=== PATIENT | female | born 2000 | race Caucasian/White ===

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

== ENCOUNTER 2019-01-20 15:16 | Outpatient (REF) | payer BC, SELFPAY ==
[2019-01-20 22:23] LABS: HGB 14.8 g/dL (12.0-15.5); Mean Corp. HGB Concentration 35.2 g/dL (32.0-36.0); Mean Corpuscular Volume 93.8 fL (80-95); Mean Platelet Volume 10.4 fL (8.0-11.0); Platelet Count 240 x1000/uL (130-400); RBC 4.48 m/cumm (4.00-5.20); RBC Distribution Width 13.1 % (11.7-14.6); White Blood Cell Count 3.04 k/cumm (4.4-10.8)
[2019-01-20 22:49] LABS: Anion Gap 9.2 mmol/L (3-11); BUN 10 mg/dL (7-18); CO2 27.8 mmol/L (21.0-32.0); CREATININE 0.68 mg/dL (0.55-1.02); Calcium 9.4 mg/dL (8.5-10.1); Chloride 107 mmol/L (98-107); Glucose 79 mg/dL (74-106); Sodium 144 mmol/L (136-145); TSH (W/Ref FT4) 0.63 uIU/mL (0.52-4.13)
== END 2019-01-20 15:36 ==
LOC: NCHCN 15:16
PROVIDERS: Visit Provider Nurse Practitioner Family
DX: R55 Syncope and collapse (principal)
CPT/HCPCS: 80048; 85027; 84443

== ENCOUNTER 2019-07-28 19:42 | Emergency (ER) | payer BC, SELFPAY ==
[2019-07-28 19:53] VITALS: BP 118/79; PULSE 91; RESP 18; TEMP 36.7; O2SAT 99
--- NOTE | 2019-07-28 20:12 | PDOC.CMSAFED ---
- If Service Date Differs Date of service: 07/28/19 Time of Service: 20:12 Care Management Safety Plan Chief complaint: Lety is a 19 year old female who resides in [place], [place], with her parents. She just completed her sophomore year at [employer]. Lety tells the ED provider she has a lot of stressors in her life and has been having worsening suicidal thoughts and feelings of hopelessness over the last 1-1/2 weeks. She goes on to say she does not see the point in life anymore, but denies plan to harm herself and says she is afraid to . Lety was started on Sertraline 50 mg daily by her PCP a few months ago for treatment of depression. CM will respond to ED to assess patient after patient has been medically cleared and assessed by screener. If screener deems patient meets criteria for psychiatric stabilization, CM will facilitate interdepartmental huddle with [facility] screener for safety planning considerations and meet with patient to review [facility] policy and safety plan, establish individual wishes for treatment and maintain patient rights. In the interim; please note safety plan below to guide patient care while awaiting further assessment in the ED. SAFETY PLAN: 1. Will remain on suicide precautions and in paper clothes. 2. Will remain in room under direct supervision of one-on-one staff at all times provided by [employer], EVER, BONDERITE OPERATOR certified family mediator. 3. May have paper cups, plates, finger foods as well as a cardboard spoon with which to eat meals. 4. Follow [facility] Management of the Admitted Behavioral Health Patient policy. 5. Comfort bath system only. 6. No personal belongings 7. No visitors. 8. Activities: None at this time. 8. No telephone privileges at this time. 9. Due to VOLUNTARY status, if patient wishes to leave [facility], the [facility] grey roll worker must be contacted to evaluate patient prior to patient exiting the building. If deemed appropriate for inpatient psychiatric care, safety plan will be established with patient, and care team, to adhere to patient goals, identify restrictions based on behavioral status, address nutrition, and determine allowed personal belongings, tools for hygiene and personal care. As well plan will determine level of activity including ambulation, level of supervision, visitors, and determine privileges based on level of acuity, behaviors and level of engagement by patient. DISPOSITION: Lety is medically cleared and she has been assessed by MH screener. Lety is able to enter into a safety plan, so she is returning home with her parents. She is provided with the crisis number for [facility] and is instructed to call as needed. A hot mill worker from [facility] will follow up with Lety in the morning.
--- NOTE | 2019-07-28 20:29 | W.ED.GENAD ---
Discharge Plan Disposition Patient Disposition: HOME Condition: Stable Discharge Details Chief Complaint: PsychEval Clinical Impression: Depression Primary Care Provider: Nitesh Tucker ED Provider: Ioana Hernandez Home Meds and New Rx's Prescriptions: No Action norgestimate-ethinyl estradiol [Sprintec (28)] 0.25-35 mg-mcg tablet 1 tab PO DAILY Qty: 84 RF: 3 sertraline 50 mg Tablet 50 mg PO DAILY RF: 0 buspirone 5 mg Tablet 5 mg PO BID RF: 0 Discharge Instructions Instructions: Depression (ED), Suicide Prevention (ED) Additional Instructions: Please call the suicide prevention hotline if any further thoughts of harming yourself. Also call the [facility] emergency hotline at if any further thoughts. They will call you tomorrow for follow-up. Follow up with primary care provider in 3-5 days. Return to ED sooner if any worsening suicidal thoughts, or concerns. Increase oral fluids. Take previously prescribed medications as directed. Stand Alone Forms: Work Release Referrals: Nitesh Tucker MD [Primary Care Provider] - Discharge Data Discharge Date/Time-TO BE ENTERED AT DEPARTURE: 07/28/19 22:00 Medical Decision Making 19-year-old female presents to the ED with depression, requesting psych eval. Patient states that she has had worsening thoughts daily over the last 1-1/2 weeks and states that she does not see the point in life anymore. Patient does take sertraline 50 mg daily since winter. Patient relays that she has thoughts of hopelessness. She denies taking any extra medications denies drugs or alcohol. Does not smoke. States she has had increased stressors. She does not have a plan at this time. She denies any physical complaints other than intermittent mild headache. 2134: Behavioral health evaluation process at this time. 2139: Spoke with [facility] behavioral health liaison who reports patient is safe to go home in custody of her parents, does have a safety plan in place and they are to follow-up with her tomorrow. I will give patient the phone number for the emergency crisis hotline. At this time I agree with the assessment and plan for patient, care management will be notified. Patient given suicide crisis hotline, strict return instructions given. Patient verbalizes feeling safe to be discharged home at this time. HPI General Mode of arrival: ambulatory. Date/Time Provider Initiated Documentation: 07/28/19 20:02. Limitations to Documentation: no limitations. Information obtained by: patient. HPI Narrative: 19-year-old female presents to the ED with depression, requesting psych eval. Patient states that she has had worsening thoughts daily over the last 1-1/2 weeks and states that she does not see the point in life anymore. Patient does take sertraline 50 mg daily since winter. Patient relays that she has thoughts of hopelessness. She denies taking any extra medications denies drugs or alcohol. Does not smoke. States she has had increased stressors. She does not have a plan at this time. She denies any physical complaints other than intermittent mild headache. Related Data Home Medications Medication Instructions Recorded Confirmed norgestimate 0.25 mg-ethinyl 1 tab PO DAILY #84 tab 08/31/18 07/28/19 estradiol 35 mcg tablet buspirone 5 mg PO BID 07/28/19 07/28/19 sertraline 50 mg PO DAILY 07/28/19 07/28/19 Previous Rx's Medication Instructions Recorded norgestimate 0.25 mg-ethinyl 1 tab PO DAILY #84 tab 08/31/18 estradiol 35 mcg tablet Allergies Allergy/AdvReac Type Severity Reaction Status Date / Time No Known Allergies Allergy Verified 07/28/19 20:11 General Stated Complaint: PsychEval FERNANDO: 2 Review of Systems Narrative: Constitutional: Negative for weight loss, alert and oriented, well groomed, normal body habitus, appears comfortable. HEENT: Denies trauma, , blurry vision, nasal discharge, sore throat, trouble swallowing. Positive intermittent headache. Chest: Denies chest pain, palpitations, irregular rhythm, hypertension. Respiratory: Denies Shortness of breath, cough, hemoptysis. GI: Denies abdominal pain, nausea, vomiting, diarrhea, constipation. : Denies dysuria, hematuria, flank pain, rectal bleeding. Neuro: Denies dizziness, blurry vision, weakness, syncope, or facial numbness. Hematologic: Denies easy bruising, intolerance to heat or cold, hair loss. All systems reviewed & are unremarkable except as noted in HPI and below Psychiatric Psychiatric: Reports as per HPI, Reports depression, Denies auditory hallucinations, Reports hopelessness and Reports suicidal ideation (Has thoughts of hurting herself, no plan) [facility] Medical History Constipation Depression (Chronic) Episode of syncope (Chronic) Generalized headaches Right ankle sprain Family History Mother Essential hypertension Father No problems noted. 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 Appears stated age. Normal body habitus. Head: Normocephalic, no trauma. Eyes: Pupils PERRLA, Red reflex noted, EOM's intact. Eyelids symmetrical without lesions, discharge, or swelling. ENT: Bilateral TM's WNL, External ear normal to inspection, no mastoid TTP, swelling, or erythema, Nasal turbinates WNL, no nasal discharge. Normal dentition, Posterior pharynx WNL, no exudate. Chest: RRR, Normal S1, S2, distal pulses intact. Resp: Lungs clear to auscultation bilaterally, no wheezes, rales, or rhonchi. Musculoskeletal: Normal gait, 5/5 strength to all four extremities. Skin: No suspicious rashes or lesions. Capillary refill less than 2 sec. Neurologic: Cranial nerves II-XII intact. Alert and oriented x 3. DTR's intact. Hematologic/Lymphatic: No ecchymosis, no lymphadenopathy. Psych Appearance: well kempt Mood: anxious mood Affect: sad Attitude: cooperative Thought Process: normal Thought Content: normal and suicidality (Thoughts of self-harm, no plan) Insight: insight good Judgment: judgment good Other: Patient does state that she is afraid to Course Vital Signs Vital signs: Vital Signs Temperature 36.7 C 07/28/19 19:53 Pulse 91 H 07/28/19 19:53 Respiratory Rate 18 06/17/20 19:53 Blood Pressure 118/79 07/28/19 19:53 Pulse Oximetry 99 07/28/19 19:53 Temperature 36.7 C 07/28/19 19:53 Temperature Source Tympanic 07/28/19 19:53 Pulse 91 H 07/28/19 19:53 Respiratory Rate 18 07/28/19 19:53 Respiratory Effort Non-Labored 07/28/19 19:58 Blood Pressure 118/79 07/28/19 19:53 Blood Pressure Position Sitting 07/28/19 19:53 Pulse Oximetry 99 07/28/19 19:53 Oxygen Delivery Method Room Air 07/28/19 19:53 Oxygen Flow Rate 0 07/28/19 19:53
--- NOTE | 2019-07-28 21:45 | PDOC.MHCN ---
Date of service: 07/28/19 Time of Service: 21:45 Mental Health Crisis Note Presenting Issue How did you arrive at the ED and why did you come: Client arrived at the ED by her boyfriend after making suicidal threats. Precipitating Factors Client reported no SI or HI. Client reports that she does not want to , she just feels like there is no point in life and it may be better off if she is not here. Client reports that even though she has these thoughts, she is afraid to hurt herself and is afraid of what it will be like on the other side. Disposition BEHAVIOR: unremarkable EYE CONTACT: normal MOOD: anxious and slightly depressed AFFECT: normal APPETITE: normal SLEEP(trouble falling/staying asleep: none reported Plan This clinician spoke with client and discussed coping strategies for helping her when she is feeling depressed or anxious. [facility] will reach out to client tomorrow to support her in finding a new therapist. Client will call Emergency number if feeling any SI. This junior technical writer spoke with physician and we both felt client would be safe to go home. Signature Clinician's Name/Title: Albina Ortiz [facility] Emergency Clinician
[2019-07-28 21:59] VITALS: BP 122/64; PULSE 64; RESP 18; TEMP 36.6; O2SAT 98
== END 2019-07-28 22:00 | disposition home or self-care (01) ==
PROVIDERS: Emergency Provider Registered Nurse Emergency; PCP Internal Medicine
DX: F32.9 Major depressive disorder, single episode, unspecified (principal); R45.851 Suicidal ideations
CPT/HCPCS: 99285; 99283

== ENCOUNTER 2019-09-08 10:30 | Outpatient (REF) | payer BC, SELFPAY ==
[2019-09-09 18:37] LABS: Chlamydia Result Negative (Negative); GC Result Negative (Negative)
== END 2019-09-08 10:50 ==
LOC: LBN 10:30
PROVIDERS: PCP Internal Medicine; Visit Provider Nurse Practitioner Women's Health
DX: Z11.3 Encounter for screening for infections with a predominantly sexual mode of transmission (principal)
CPT/HCPCS: 87491; 87591

== ENCOUNTER 2020-01-21 12:00 | Outpatient (REF) | payer BC, SELFPAY ==
[2020-01-25 21:58] LABS: COVID-19 RT-PCR Result NEGATIVE (Negative)
== END 2020-01-21 12:20 ==
LOC: NCHCN 12:00
PROVIDERS: PCP Internal Medicine; Visit Provider Nurse Practitioner Family
DX: R50.9 Fever, unspecified (principal)
CPT/HCPCS: U0003

== ENCOUNTER 2020-06-08 13:24 | Emergency (ER) | payer BC, SELFPAY ==
[2020-06-08 13:32] VITALS: BP 149/104; PULSE 75; RESP 20; TEMP 36.2; O2SAT 100
--- NOTE | 2020-06-08 13:37 | ED.GENADUL_ITS ---
Discharge Plan Disposition Patient Disposition: HOME Condition: Improving Discharge Details Clinical Impression: Vomiting and diarrhea Primary Care Provider: Diana Velasco ED Provider: Fiordaliza Uribe Home Meds and New Rx's Prescriptions: New ondansetron 4 mg tablet,disintegrating 4 mg PO TID PRN (Reason: nausea and vomiting) Qty: 6 RF: 0 Continued norgestimate-ethinyl estradiol [Elvira] 0.25-35 mg-mcg Tablet 1 tab PO DAILY RF: 0 sertraline 25 mg Tablet 25 mg PO DAILY RF: 0 Discharge Instructions Instructions: Acute Nausea and Vomiting (ED), Acute Diarrhea (ED) Additional Instructions: Drink plenty of fluids and get plenty of rest. Your prescription has been sent electronically to your pharmacy. Call the pharmacy to make sure your prescription is ready before pickup. Take the prescription as directed. Follow-up with your primary care doctor in 1 week. Return to the emergency department with any worsening or new concerning symptoms. Stand Alone Forms: Work Release Discharge Data Discharge Date/Time-TO BE ENTERED AT DEPARTURE: 06/08/20 16:02 Discharge Physician: Fiordaliza Uribe Medical Decision Making 19-year-old female with no significant past medical history presents with vomiting and diarrhea today. She had 3 episodes of vomiting which were blood- tinged and brown and with loose brown Patient showed me pictures of her vomit and it appeared that the toilet was red- tinged on first episode of vomiting, and another episode look like brown stringy material. Her vitals are within normal limits. She appears nontoxic and afebrile. Screening labs done on arrival and note a hemoglobin which is actually elevated at 16.7 which may be consistent with dehydration. Remainder of labs unremarkable. Urine test negative. As she has no return of nausea, is hemodynamically stable and appears nontoxic, do not see an indication for NG tube and patient is agreeable. As she appears nontoxic and her abdomen is soft and nontender, do not see an indication for imaging. Patient given IV fluids and Zofran and had significant relief and was able to tolerate fluids and crackers without any further nausea. Patient feels good to go home. A prescription for Zofran was sent electronically to her pharmacy. Discussed that her presentation could be due to a GI viral illness. Advised to follow up with the primary care doctor for re-evaluation. Usual and customary return precautions given prior to discharge. Medical Records Medical records reviewed: Yes I reviewed the patient's medical records. Lab Data Lab results reviewed: Yes I reviewed the patient's lab results. Labs: Laboratory Tests Range/Units 06/08/20 06/08/20 13:56 13:56 WBC (4.4-10.8) 10^3/uL 4.63 RBC (3.93-5.22) 10^6/uL 5.33 H Hgb (11.2-15.7) g/dL 16.7 H Hct (36.0-46.0) % 47.2 H MCV (80-95) fL 88.6 MCH (27.0-33.0) pg 31.3 MCHC (32.0-36.0) % 35.4 RDW (11.7-14.6) % 13.0 Plt Count (130-400) 10^3/uL 228 MPV (8.0-11.0) fL 9.1 Immature Gran % 0.2 Neutrophils % 72.6 Lymphocytes % 20.5 Monocytes % 6.3 Eosinophils % 0.2 Basophils % 0.2 Nucleated RBC % % 0 Absolute Neutrophils (1.2-6.7) 10^3/uL 3.36 Absolute Lymphocytes (1.2-3.4) 10^3/uL 0.95 L Absolute Monocytes (0.1-0.8) 10^3/uL 0.29 Absolute Eosinophils (0.0-0.7) 10^3/uL 0.01 Absolute Basophils (0.0-0.2) 10^3/uL 0.01 Sodium (136-145) mmol/L 142 Potassium (3.5-5.1) mmol/L 4.0 Chloride (98-107) mmol/L 103 Carbon Dioxide (21.0-32.0) mmol/L 27.9 Anion Gap (3-11) mmol/L 11.1 H BUN (7-18) mg/dL 12 Creatinine (0.55-1.02) mg/dL 0.7 Estimated GFR/1.73 m2 (mL/min/1.73m2) >= 60.00 Glucose (74-106) mg/dL 90 Calcium (8.5-10.1) mg/dL 9.8 Total Bilirubin (0.2-1.0) mg/dL 0.9 AST (15-37) U/L 21 ALT (14-59) U/L 34 Alkaline Phosphatase (46-116) U/L 57 Total Protein (6.4-8.2) g/dL 7.9 Albumin (3.4-5.0) g/dL 4.3 Lipase (73-393) U/L 214 HPI General Mode of arrival: ambulatory . Date/Time Provider Initiated Documentation: 06/08/20 13:24 . Limitations to Documentation: no limitations . Information obtained by: patient . HPI Narrative: Patient is a 19-year-old female with no significant past medical history presents with vomiting and diarrhea today. Patient states she vomited 3 times today which she was concerned as it appeared to have blood in the toilet. She noted bright red blood in the toilet upon first episode of vomiting and then subsequent episode is noted what appeared to be brown coffee ground. She states she also had loose brown diarrhea. She states she ate a 4-day-old pizza last night but otherwise denies any change in her diet, new medications, recent travel, recent antibiotics. She denies any fever, abdominal pain or urinary symptoms Related Data Home Medications Medication Instructions Recorded Confirmed norgestimate-ethinyl estradiol 1 tab PO DAILY 06/08/20 06/08/20 [Elvira] ondansetron 4 mg PO TID PRN #6 tab 06/08/20 sertraline 25 mg PO DAILY 06/08/20 06/08/20 Previous Rx's Medication Instructions Recorded ondansetron 4 mg PO TID PRN #6 tab 06/08/20 Allergies Allergy/AdvReac Type Severity Reaction Status Date / Time No Known Allergies Allergy Unverified 06/08/20 14:01 General Stated Complaint: GI Bleed FERNANDO: 3 Review of Systems All systems reviewed & are unremarkable except as noted in HPI and below Constitutional Constitutional: Reports as per HPI, Denies chills and Denies fever(s) Eyes Eyes: Denies blurry vision ENT Ears, Nose, Mouth, and Throat: Denies dizziness, Denies sore throat and Denies throat swelling Cardiovascular Cardiovascular: Denies chest pain and Denies dyspnea Respiratory Respiratory: Denies cough and Denies dyspnea Gastrointestinal Gastrointestinal: Denies abdominal pain, Reports diarrhea and Reports vomiting Genitourinary Genitourinary: Denies hematuria and Denies dysuria Musculoskeletal Musculoskeletal: Denies back pain and Denies numbness Integumentary/Breasts Skin/Breast: Denies lesions and Denies rash Neurologic Neurologic: Denies dizziness, Denies localized weakness and Denies numbness Allergic/Immunologic Allergic/Immunologic: Denies throat swelling [facility] Medical History (Updated 06/08/20 @ 16:05 by Fiordaliza Uribe DO) Depression Surgical History (Updated 06/08/20 @ 16:05 by Fiordaliza Uribe DO) No significant past surgical history Social History Smoking/Tobacco Use Status: Never Smoking risk assessment performed?: Yes Alcohol Intake: never Drug use: Never Substance use type: does not use Do you feel safe at home: Yes Do you feel safe in your relationship?: Yes Exam Const General: cooperative, healthy appearing and no acute distress HENMT Head: normal to inspection Face and sinus: normal facial exam Eyes General: appearance normal, both eyes and all related structures EOM: EOM intact bilaterally Neck Neck: normal visual inspection and No submandibular swelling Lymphatic: no lymphadenopathy noted Chest Chest: normal inspection of the chest and no tenderness Resp Effort & Inspection: normal respiratory effort and able to speak in complete sentences Auscultation: clear to auscultation bilaterally Cardio Rate: regular rate Rhythm: regular rhythm GI Inspection: normal to inspection Palpation: soft, not firm, not rigid and nontender Auscultation: normal bowel sounds Skin General skin exam: no rashes or lesions noted Neuro General: patient alert, patient awake and patient oriented x3 Cognition: normal cognition Speech: speech normal Motor: muscle tone normal throughout Sensory Exam: no sensory deficits noted Extrem General: normal to inspection, full ROM, capillary refill normal, no calf tenderness bilaterally and no edema Psych Appearance: grossly normal Mental Status: mental status grossly normal Speech and Movement: speech and movement normal Affect: normal affect Course Vital Signs Vital signs: Vital Signs Temperature 97.2 F L 06/08/20 13:32 Pulse 75 06/08/20 13:32 Respiratory Rate 20 06/08/20 13:32 Blood Pressure 149/104 H 06/08/20 13:32 Pulse Oximetry 100 06/08/20 13:32 Temperature 97.2 F L 06/08/20 13:32 Temperature Source Skin 06/08/20 13:32 Pulse 75 06/08/20 13:32 Respiratory Rate 20 06/08/20 13:32 Respiratory Effort Non-Labored 06/08/20 13:37 Blood Pressure 149/104 H 06/08/20 13:32 Blood Pressure Position Sitting 06/08/20 13:32 Pulse Oximetry 100 06/08/20 13:32 Oxygen Delivery Method Room Air 06/08/20 13:32 Oxygen Flow Rate 0 06/08/20 13:32 Pain Level 0 06/08/20 13:32
[2020-06-08 14:02] LABS: Abs Immature Grans 0.01 10^3/uL (0.0-0.06); Absolute Basophil Count 0.01 10^3/uL (0.0-0.2); Absolute Eosinophil Count 0.01 10^3/uL (0.0-0.7); Absolute Lymphocyte Count 0.95 10^3/uL (1.2-3.4); Absolute Monocyte Count 0.29 10^3/uL (0.1-0.8); Absolute Neutrophil Count 3.36 10^3/uL (1.2-6.7); Basophils % 0.2; Eosinophils % 0.2; HCT 47.2 % (36.0-46.0); HGB 16.7 g/dL (11.2-15.7); Immature Grans % 0.2; Lymphocytes % 20.5; MCH 31.3 pg (27.0-33.0); MCHC 35.4 % (32.0-36.0); MCV 88.6 fL (80-95); MPV 9.1 fL (8.0-11.0); Monocytes % 6.3; Neutrophils % 72.6; Nucleated RBC 0 %; Platelet Count 228 10^3/uL (130-400); RBC 5.33 10^6/uL (3.93-5.22); RDW-SD 41.8 fL; WBC 4.63 10^3/uL (4.4-10.8)
[2020-06-08] MEDS: Normal Saline 500 ML IV (14:02)
[2020-06-08 14:15] LABS: ALT 34 U/L (14-59); AST 21 U/L (15-37); Albumin 4.3 g/dL (3.4-5.0); Alkaline Phosphatase 57 U/L (46-116); Anion Gap 11.1 mmol/L (3-11); BUN 12 mg/dL (7-18); Bilirubin, Total 0.9 mg/dL (0.2-1.0); CO2 27.9 mmol/L (21.0-32.0); CREATININE 0.7 mg/dL (0.55-1.02); Calcium 9.8 mg/dL (8.5-10.1); Chloride 103 mmol/L (98-107); Glucose 90 mg/dL (74-106); Lipase 214 U/L (73-393); Sodium 142 mmol/L (136-145); Total Protein 7.9 g/dL (6.4-8.2)
[2020-06-08 14:31] VITALS: BP 118/45; PULSE 74; RESP 16; O2SAT 99
[2020-06-08] MEDS: Ondansetron 4 MG/2 ML VIAL IVP (15:08)
--- NOTE | 2020-06-08 16:03 | NUR.NOTE ---
Nursing Note: PT PASSED PO CHALLENGE. 300ML GINGERALE AND CRACKERS. DENIES NAUSEA/VOMIT. ER AWARE
== END 2020-06-08 16:02 | disposition home or self-care (01) ==
PROVIDERS: Emergency Provider Physician Assistant; PCP Nurse Practitioner Family
DX: R11.2 Nausea with vomiting, unspecified (principal); R19.7 Diarrhea, unspecified
CPT/HCPCS: 80053; 81025; 83690; 96361; 96374; 99284; 85025; 99283; J2405

== ENCOUNTER 2020-06-27 18:10 | Outpatient (REF) | payer BC, SELFPAY ==
--- NOTE | 2020-06-27 16:30 | PAPFT_PTH ---
PATIENT: Lety Murray LOC: [facility]#:[id number] AGE/SX: 19/F ROOM: RE06/27/[address]: Diana Velasco : 2000 BED: DIS: 06/27/2020 SPEC #: [id number] RECD: 06/28/20 12:57 STATUS: [place] SPEAR #: [id number] RAF: 06/27/20 16:[address]: Diana Velasco DEPT: [facility] Cytology RECD BY: Yamilet Fairbanks ENTERED: 06/28/20 12:57 SP TYPE: PAPFT OTHR DR: Nitesh Tucker Tissues: 1 - CX/ENDOCX FOR PAP SMEARS Procedures: PAP THIN PREP/UVM Screening Comments: [id number]
== END 2020-06-27 18:11 | disposition home or self-care (01) ==
LOC: NCHCN 18:10
PROVIDERS: PCP Internal Medicine; Visit Provider Nurse Practitioner Family
DX: Z12.4 Encounter for screening for malignant neoplasm of cervix (principal); Z00.00 Encounter for general adult medical examination without abnormal findings; Z01.419 Encounter for gynecological examination (general) (routine) without abnormal findings
CPT/HCPCS: 88142

== ENCOUNTER 2020-07-29 22:53 | Emergency (ER) | payer BC, SELFPAY ==
[2020-07-29 23:04] VITALS: BP 136/106; PULSE 97; RESP 16; TEMP 37; O2SAT 99
[2020-07-29 23:59] LABS: *AMPHETAMINES SCREEN URINE Negative (Negative); *BARBITURATES SCREEN URINE Negative (Negative); *BENZODIAZEPINES SCREEN URINE Negative (Negative); Cannabinoids THC Negative (Negative); Cocaine Screen,Urine Negative (Negative); METHADONE URINE SCREEN Negative (Negative); OPIATES URINE SCREEN Negative (Negative)
[2020-07-30] LABS: Tricyclic Antidepressants Negative (Negative)
--- NOTE | 2020-07-30 00:02 | ED.GENADUL_ITS ---
Discharge Plan Disposition Patient Disposition: HOME Condition: Good Discharge Details Clinical Impression: Depression Primary Care Provider: Diana Velasco ED Provider: Juan M Vidal Home Meds and New Rx's Prescriptions: Continued norgestimate-ethinyl estradiol [Elvira] 0.25-35 mg-mcg Tablet 1 tab PO DAILY RF: 0 sertraline 25 mg Tablet 25 mg PO DAILY RF: 0 Discharge Instructions Instructions: Depression (ED) Additional Instructions: Home with mom and follow safety plan that has been constructed with mental health. Check in with mental health as planned over the weekend. Return to ED for unsafe feelings or other concerns. Referrals: [facility] [Provider Group] Diana Velasco [Primary Care Provider] - Discharge Data Discharge Date/Time-TO BE ENTERED AT DEPARTURE: 07/30/20 01:03 Medical Decision Making <JOSE CARLOS Brian - Last Filed: 07/30/20 19:35> Patient is not actively suicidal and denies plan to harm herself, mother is present and very helpful in discussion with patient, she is not under the influence of any mood altering substances discharge my exam displays She is calm and cooperative, she is slightly tearful but insight and judgment appear to be intact She is medically cleared from my perspective, she will be chatting with Diana mental health provider at this time Care signed out to Dr. Vidal pending [facility] and disp <Juan M Vidal MD - Last Filed: 07/30/20 00:52> Patient signed out to me pending her eval by mental health. Patient is depressed but not felt to be a threat to herself or anyone else. Patient will go home with mom, safety plan in place, check in with mental health over the weekend. Return to ED for any unsafe feelings or concerns. HPI <JOSE CARLOS Brian - Last Filed: 07/30/20 19:35> General Mode of arrival: ambulatory . Date/Time Provider Initiated Documentation: 07/29/20 23:09 . Limitations to Documentation: no limitations . Information obtained by: patient . HPI Narrative: This 20-year-old female with history of depression presents with report of worsening depression and intermittent thoughts of feeling like I do not want to live. She denies suicidal ideation at this moment, she denies specific plan to harm herself. She denies auditory or visual hallucinations. She denies any previous attempts to harm herself in the past. She states that largely her depression is situational. She states that she had alcohol for her birthday last night and typically this precipitated worsening depression. She had an argument with her boyfriend and she was feeling upset because she could not control the situation so she drove to the emergency room for evaluation. She denies any attempts to harm self tonight. She denies any prior hospitalizations. She does have a counselor in the outpatient setting. She denies any illicit drug use Related Data Home Medications Medication Instructions Recorded Confirmed norgestimate-ethinyl estradiol 1 tab PO DAILY 06/08/20 07/29/20 [Elvira] sertraline 25 mg PO DAILY 06/08/20 07/29/20 Allergies Allergy/AdvReac Type Severity Reaction Status Date / Time No Known Allergies Allergy Unverified 07/29/20 23:08 General Stated Complaint: PsychEval FERNANDO: 2 Review of Systems <JOSE CARLOS Brian - Last Filed: 07/30/20 19:35> Narrative: Review of systems obtained x7 aside from where indicated in HPI PFSH <JOSE CARLOS Brian - Last Filed: 07/30/20 19:35> Medical History (Updated 07/30/20 @ 00:50 by Juan M Vidal MD) Depression Surgical History (Updated 06/08/20 @ 16:05 by Fiordaliza Uribe DO) No significant past surgical history Social History Smoking/Tobacco Use Status: Never Smoking risk assessment performed?: Yes Alcohol Intake: never Drug use: Never Substance use type: does not use Do you feel safe at home: Yes Do you feel safe in your relationship?: Yes Exam <JOSE CARLOS Brian Last Filed: 07/30/20 19:35> Const Orientation: alert and oriented x3 Resp Effort & Inspection: normal respiratory effort Cardio Rate: regular rate Neuro General: patient alert and patient oriented x3 Psych Appearance: well kempt Mental Status: mental status grossly normal Speech and Movement: speech and movement normal Attitude: cooperative Insight: insight good Course <JOSE CARLOS Brian Last Filed: 07/30/20 19:35> Vital Signs Vital signs: Vital Signs Temperature 37.0 C 07/29/20 23:04 Pulse 97 H 07/29/20 23:04 Respiratory Rate 16 07/29/20 23:04 Blood Pressure 136/106 H 07/29/20 23:04 Pulse Oximetry 99 07/29/20 23:04 Temperature 37.0 C 07/29/20 23:04 Pulse 97 H 07/29/20 23:04 Respiratory Rate 16 07/29/20 23:04 Blood Pressure 136/106 H 07/29/20 23:04 Pulse Oximetry 99 07/29/20 23:04 Pain Level 0 07/29/20 23:04 Lab/Test Results Lab/Test Results: Laboratory Tests Range/Units 07/29/20 07/29/20 07/29/20 23:05 23:22 23:22 WBC Cancelled RBC Cancelled Hgb Cancelled Hct Cancelled MCV Cancelled MCH Cancelled MCHC Cancelled RDW Cancelled Plt Count Cancelled MPV Cancelled Immature Gran % Cancelled Neutrophils % Cancelled Band Neutrophils % Cancelled Lymphocytes % Cancelled Atypical Lymphs % Cancelled Monocytes % Cancelled Eosinophils % Cancelled Basophils % Cancelled Metamyelocytes % Cancelled Myelocytes % Cancelled Promyelocytes % Cancelled Other Cells % Cancelled Nucleated RBC % Cancelled Absolute Neutrophils Cancelled Absolute Lymphocytes Cancelled Absolute Monocytes Cancelled Absolute Eosinophils Cancelled Absolute Basophils Cancelled RBC Morphology Cancelled Polychromasia Cancelled Hypochromasia Cancelled Poikilocytosis Cancelled Basophilic Stippling Cancelled Anisocytosis Cancelled Microcytosis Cancelled Macrocytosis Cancelled Spherocytes Cancelled Tear Drop Cells Cancelled Ovalocytes Cancelled Stomatocytes Cancelled [place] Bodies Cancelled Yahir Cells/Echinocytes Cancelled Acanthocytes (Spur) Cancelled Schistocytes Cancelled Sodium Cancelled Potassium Cancelled Chloride Cancelled Carbon Dioxide Cancelled Anion Gap Cancelled BUN Cancelled Creatinine Cancelled Estimated GFR/1.73 m2 Cancelled Glucose Cancelled Calcium Cancelled Total Bilirubin Cancelled AST Cancelled ALT Cancelled Alkaline Phosphatase Cancelled Total Protein Cancelled Albumin Cancelled TSH Cancelled Urine Opiates Screen (Negative) Negative Urine Methadone Screen (Negative) Negative Ur Barbiturates Screen (Negative) Negative Ur Tricyclics Screen (Negative) Negative Ur Amphetamines Screen (Negative) Negative U Benzodiazepines Scrn (Negative) Negative Urine Cocaine Screen (Negative) Negative Ur THC Screen (Negative) Negative Ethyl Alcohol Cancelled POC- Test(urine) Negative Sign Out <JOSE CARLOS Brian - Last Filed: 07/30/20 19:35> Sign Out Data: Sign Out Comment: pending nkhs and dispo Last updated by Yamilet Millan PA at 07/30/20 00:06
== END 2020-07-30 01:03 | disposition home or self-care (01) ==
PROVIDERS: Physician Assistant; Emergency Provider Emergency Medicine; PCP Nurse Practitioner Family
DX: F32.9 Major depressive disorder, single episode, unspecified (principal)
CPT/HCPCS: 80053; 80307; 81025; 99283; 80320; 84443; 85025

== ENCOUNTER 2020-12-12 11:27 | Outpatient (REF) | payer BC, SELFPAY ==
[2021-02-05 11:25] LABS: COVID-19 RT-PCR UVMMC Result Negative (Negative)
== END 2020-12-12 11:28 | disposition home or self-care (01) ==
LOC: NCHCN 11:27
PROVIDERS: PCP Nurse Practitioner Family; Visit Provider Nurse Practitioner Family
DX: Z20.822 Contact with and (suspected) exposure to COVID-19 (principal); J06.9 Acute upper respiratory infection, unspecified
CPT/HCPCS: U0003

== ENCOUNTER 2021-08-22 18:47 | Outpatient (REF) | payer BC, SELFPAY ==
[2021-08-24 09:58] LABS: HIV-1/2 Ag & Ab Screen Negative (Negative)
[2021-08-24 14:24] LABS: Chlamydia Result Negative (Negative); GC Result Negative (Negative)
== END 2021-08-22 18:48 | disposition home or self-care (01) ==
LOC: NCHCN 18:47
PROVIDERS: PCP Nurse Practitioner Family; Visit Provider Nurse Practitioner Family
DX: Z11.3 Encounter for screening for infections with a predominantly sexual mode of transmission (principal); Z11.4 Encounter for screening for human immunodeficiency virus [HIV]
CPT/HCPCS: 86803; 87389; 87491; 87591; 86780

== ENCOUNTER 2021-12-09 19:19 | Emergency (ER) | payer BC, SELFPAY ==
[2021-12-09 19:23] VITALS: BP 137/91; PULSE 100; RESP 16; TEMP 36.9; O2SAT 98
--- OUTSIDE RECORDS SUMMARY | 2021-12-09 19:35 | XMS_ITS | Encounter Summary ---
:2000 Author Organization [facility] [place] [address] Care Team Providers Name Role Phone Ana M Gooden MD Primary Care Provider Reason for Visit Reason Comments Follow-up Here with mom ( Emily) Encounter Details Date Type Department Care Team Description 03/03/2012 Follow-Up Pediatric Gastroenterology Crystal Howe (Primary at [facility] Ermelinda Allen MD Dx) [place] [address] [facility]ENTER [phone] PEDIATRIC GASTROENTEROLOGY [place], [place] [address] Social History Tobacco Use Types Packs/Day Years Used Date Never Smoker Smokeless Tobacco: Never Used Sex Assigned at Date Recorded Not on file documented as of this encounter Last Filed Vital Signs Vital Sign Reading Time Taken Comments Blood Pressure 90/50 03/03/2012 9:58 AM EST Pulse 70 03/03/2012 9:58 AM EST Temperature - - Respiratory Rate - - Oxygen Saturation - - Inhaled Oxygen Concentration - - Weight 53.9 kg (118 lb 12.8 oz) 03/03/2012 9:58 AM EST Height - - Body Mass Index - - documented in this encounter Patient Instructions Patient InstructionsAna Jacobs RN - 03/03/2012 10:29 AM EST Seen for constipation. Will continue with daily miralax and follow up in 3-4 months. documented in this encounter Progress Notes Ermelinda Howe MD - 03/03/2012 10:08 AM EST 03/03/2012 Lety Murray is a 11 y.o. 7 m.o. female who is seen for a follow-up of constipation at the [facility]. She was last seen on 01/21/12.She is accompanied by her mother. HPI Since her last visit, mother relates in retrospect that felt Xray and blood work was traumatic for Lety. Xray did demonstrate generous stool burden. Proceed with cleanout. Has continued on daily Miralax. No longer with belly pain. No pain with defecation. Normal celiac and thyroid screening labs. No recent infections/colds. Review of Systems Except as detailed above, remainder of the 14 point review of systems negative. Medications Current Outpatient Prescriptions on File Prior to Visit Medication Sig Dispense Refill ??? polyethylene glycol (MIRALAX) 17 gram/dose powder 17 grams, PO, Once daily ??? DISCONTD: nitrofurantoin (MACRODANTIN) 50 mg capsule 50 MG = 1 Capsule(s), PO, Once daily Allergies Review of patient's allergies indicates no known allergies. History I have reviewed past medical, surgical, social and family history, medications and allergies as documented in the patient's electronic medical record. Exam Blood pressure 90/50, pulse 70, weight 53.887 kg (118 lb 12.8 oz). 81.81%ile based on CDC 2-20 Years [id number] data. No height on file. There is no height on file to calculate BMI. No unique date with height and weight on file. General:alert, well developed, well nourished in no acute distress Abdomen:soft,nontender, non-distended,normoactive bowel sounds, no organomegaly,no mass Assessment/Plan Lety is a 11 y.o. 7 m.o. female with constipation. Recommend continuation of daily Miralax, titrating accordingly for soft daily BM. Reviewed laboratory studies. Follow up appointment in 3-4 months. Mother will call to schedule. She expresses comfort and understanding of plan. This was a 25 minute counseling dominated visit with greater than 15 minutes time spent in discussion of above medical concerns. Copy sent to: Ana M Gooden MD [address] [place] [address] documented in this encounter Plan of Treatment Not on filedocumented as of this encounter Visit Diagnoses Diagnosis Constipation - Primary Unspecified constipation documented in this encounter Care Teams Computational Physicist Relationship Specialty Start Date End Date Ana M Gooden MD PCP - General 01/02/10 [address] [place] [address] documented as of this encounter
--- OUTSIDE RECORDS SUMMARY | 2021-12-09 19:35 | XMS_ITS | Encounter Summary ---
:2000 Author Organization [facility] Address [address] [place] [address] Care Team Providers Name Role Phone Unavailable Primary Care Provider Unavailable Encounter Details Date Type Department Care Team Description 12/12/2020 Lab Requisition [facility] Outr Resulting Lab, Pathology & Laboratory Provider [facility] [address] [place] [address] Social History Tobacco Use Types Packs/Day Years Used Date Never Assessed Sex Assigned at Date Recorded Not on file documented as of this encounter Plan of Treatment Not on filedocumented as of this encounter Procedures Procedure Name Priority Date/Time Associated Diagnosis Comme nts COVID-19 TEST [facility] Today 12/12/2020 10:30 LAB PCR EDT COVID-19 TESTING Routine 12/12/2020 10:30 Results for this EDT procedure are i n the results section. documented in this encounter Results COVID-19 TEST [facility] LAB PCR (12/12/2020 10:30 EDT) Specimen Swab - Entire nasopharynx (body structur e) Performing Organization Address City/State/ZIP Code Phon e Number [facility] [address] [place] [address] SERVICES COVID-19 TESTING (12/12/2020 10:30 EDT) COVID-19 rt-PCR Negative Negative [facility] Result Comment: [facility] This test has not been FDA c leared or approved. This test has been authorized by FDA under an EUA for use by authorized laboratories. This test has been authorized only for detection of nucleic acid fro SERVICES m 2019-nCoV, not for any oth er viruses or pathogens. This test is only authorized for the duration of the declaration that circumstances exist justifying the authorization of emergency use of in vitro d iagnostic tests for detectio n and/or diagnosis of 2019-nCoV under section 564(b)(1) of Act, 21 U.S.C ?? 360bbb-3(b) (1), unless the authorization is terminated or revoked sooner. Negative results do not prec lude 2019-nCoV infection and should not be used as the sole basis for treatment or other patient management decisions. Negative results must be combined with clinical observa tions, patient history, and epidemiological informatio n. Testing was performed using the desi SARS-CoV-2 assay ([employer] on the Desi 6800 System Performing Lab Desi [address] [facility] Lab [facility] SERVICES Specimen Swab Performing Organization Address City/State/ZIP Code Phon e Number [facility] [address] [place] [address] SERVICES documented in this encounter Visit Diagnoses Not on filedocumented in this encounter
--- OUTSIDE RECORDS SUMMARY | 2021-12-09 19:35 | XMS_ITS | Encounter Summary ---
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 Encounter for gynecological examination (general) (routine) without abnormal findings; Laboratory Medicine [address] for screening for malignant neoplasm of cervix - [address] [id number] Social History Tobacco Use Types Packs/Day Years Used Date Never Assessed Sex Assigned at Date Recorded Not on file documented as of this encounter Plan of Treatment Not on filedocumented as of this encounter Procedures Procedure Name Priority Date/Time Associated Diagnosis Comme nts PAP TEST Today 06/27/2020 4:30 EDT Encounter for general Results for this adult medical procedure are in examination without the resu lts abnormal finding s section. Encounter for gynecological examination (general) (routine) without abnormal finding s Encounter for screening for malignant neoplasm of cervix documented in this encounter Results PAP TEST (06/27/2020 4:30 EDT) Specimens A. Cervix and/or [facility] Endocervix , ThinPrep CENTER Imaging System with LABORATORY Manual Evaluation SERVICES Specimen Adequacy Satisfactory for [facility] Evaluation - CENTER transformation zone LABORATORY component present SERVICES General Negative for [facility] intraepithelial CENTER lesion or malignancy LABORATORY SERVICES Attestation . [facility] Electronically CENTER signed by YASMIN Brown CT(ASCP) o n SERVICES 07/06/2020 at 12 53 Clinical History See below [facility] Performing Lab [facility] Scanned Images [facility] Specimen Pap Test - Cervix and/or Endocervix Performing Organization Address City/State/ZIP Code Phon e Number [facility] [address] [place] [address] SERVICES documented in this encounter Visit Diagnoses Diagnosis Encounter for general adult medical exam ination without abnormal findings Unspecified general medical examination Encounter for gynecological examination (general) (routine) without abnormal findings Encounter for screening for malignant ne oplasm of cervix Screening for malignant neoplasm of the cervix documented in this encounter
--- OUTSIDE RECORDS SUMMARY | 2021-12-09 19:35 | XMS_ITS | Encounter Summary ---
:1999 Author Organization [facility] Address [address] [place] [address] Care Team Providers Name Role Phone Unavailable Primary Care Provider Unavailable Encounter Details Date Type Department Care Team Description 09/08/2019 Lab Requisition [facility] Outr Resulting Lab, Pathology & Laboratory Provider [facility] [address] [place] [address] Social History Tobacco Use Types Packs/Day Years Used Date Never Assessed Sex Assigned at Date Recorded Not on file documented as of this encounter Plan of Treatment Not on filedocumented as of this encounter Procedures Procedure Name Priority Date/Time Associated Comments Diagnosis CHLAMYDIA/N. Routine 09/08/2019 8:50 Results for this GONORRHOEAE AMPLIFIED EDT proced ure are in RNA the results section. documented in this encounter Results CHLAMYDIA/N. GONORRHOEAE AMPLIFIED RNA (09/08/2019 8:50 EDT) Pathologist Sig nature Gonococcus Result Negative Negative [facility] Chlamydia Result Negative Negative [facility] Specimen Urine - Urine, Initial Void Narrative [facility] - 09/09/2019 18:30 EDT A first catch urine specimen is acceptab le for detection of Gonorrhea and Chlamydia, but might detect up to 10% fewer infecti ons when compared with vaginal and endocervical swab samples. Performing Organization Address City/State/ZIP Code Phon e Number [facility] [address] [place] [address] SERVICES documented in this encounter Visit Diagnoses Not on filedocumented in this encounter
--- OUTSIDE RECORDS SUMMARY | 2021-12-09 19:35 | XMS_ITS | Clinical Summary ---
:1999 Author Organization [facility] [place] [address] Care Team Providers Name Role Phone Ana M Gooden MD Primary Care Provider Allergies No known active allergies Medications Medication Sig Dispensed Refills Start Date End Date Status polyethylene glycol 17 grams, PO, 0 01/06/2009 Active (MIRALAX) 17 gram/dose Once daily powder Active Problems Problem Noted Date Constipation 02/23/2012 Immunizations Name Administration Dates Next Due Influenza PF, Split 03/03/2012 Social History Tobacco Use Types Packs/Day Years Used Date Never Smoker Smokeless Tobacco: Never Used Sex Assigned at Date Recorded Not on file Last Filed Vital Signs Vital Sign Reading Time Taken Comments Blood Pressure 90/50 03/03/2012 9:58 AM EST Pulse 70 03/03/2012 9:58 AM EST Temperature - - Respiratory Rate - - Oxygen Saturation - - Inhaled Oxygen Concentration - - Weight 53.9 kg (118 lb 12.8 oz) 03/03/2012 9:58 AM EST Height 158.1 cm (5' 2.25) 01/21/2012 9:55 AM EST Body Mass Index - - Plan of Treatment Health Maintenance Due Date Last Done Comments Covid-19 Vaccine (#1) 01/24/2000 HPV vaccine (1 - 2-dose series) 07/24/2010 Chlamydia Screening, female 15-25 07/24/2014 HIV screen 07/24/2017 Hepatitis C Screening 07/24/2017 Tdap adult 07/24/2018 Tetanus vaccine 07/24/2018 PAP Smear 07/24/2020 Influenza (Flu) vaccine (1 of 1 - Influenza standard 10/11/2021 03/03/2012 series) Care Teams Physician President Relationship Specialty Start Date End Date Ana M Gooden MD PCP - General 01/02/10 [address] [place] [address]
--- OUTSIDE RECORDS SUMMARY | 2021-12-09 19:35 | XMS_ITS | Encounter Summary ---
:1999 Author Organization [facility] Address [address] [place] [address] Care Team Providers Name Role Phone Unavailable Primary Care Provider Unavailable Encounter Details Date Type Department Care Team Description 08/23/2021 Lab Requisition [facility] Outr Resulting Lab, Pathology & Laboratory Provider [facility] [address] [place] [address] Social History Tobacco Use Types Packs/Day Years Used Date Never Assessed Sex Assigned at Date Recorded Not on file documented as of this encounter Plan of Treatment Not on filedocumented as of this encounter Procedures Procedure Name Priority Date/Time Associated Comments Diagnosis CHLAMYDIA/N. Routine 08/22/2021 15:30 Results for this GONORRHOEAE AMPLIFIED EDT proced ure are in RNA the results section. documented in this encounter Results CHLAMYDIA/N. GONORRHOEAE AMPLIFIED RNA (08/22/2021 15:30 EDT) Pathologist Sig nature Gonococcus Result Negative Negative [facility] Chlamydia Result Negative Negative [facility] Specimen Urine - Urine, Initial Void Narrative [facility] - 08/24/2021 14:19 EDT A first catch urine specimen is acceptab le for detection of Gonorrhea and Chlamydia, but might detect up to 10% fewer infecti ons when compared with vaginal and endocervical swab samples. Performing Organization Address City/State/ZIP Code Phon e Number [facility] [address] [place] [address] SERVICES documented in this encounter Visit Diagnoses Not on filedocumented in this encounter
--- OUTSIDE RECORDS SUMMARY | 2021-12-09 19:35 | XMS_ITS | Encounter Summary ---
:1999 Author Organization [facility] [place] [address] Care Team Providers Name Role Phone Ana M Gooden MD Primary Care Provider Reason for Visit Reason Comments GI Problem Here today with her Mother - Emily. Diagnosed with slow transiant bowel sydrome. Bedwetting again of recent. Encounter Details Date Type Department Care Team Description 01/21/2012 Office Visit Pediatric [facility] Ermelinda Allen MD (Primary Dx) [facility] [place] [address] CENTER [phone] [place] [address] Social History Tobacco Use Types Packs/Day Years Used Date Never Smoker Smokeless Tobacco: Never Used Sex Assigned at Date Recorded Not on file documented as of this encounter Last Filed Vital Signs Vital Sign Reading Time Taken Comments Blood Pressure 106/64 01/21/2012 9:55 AM EST Pulse - - Temperature - - Respiratory Rate - - Oxygen Saturation - - Inhaled Oxygen Concentration - - Weight 52.6 kg (116 lb) 01/21/2012 9:55 AM EST Height 158.1 cm (5' 2.25) 01/21/2012 9:55 AM EST Body Mass Index 21.05 01/21/2012 9:55 AM EST Body Mass Index Percentile 78.62 % 01/21/2012 9:55 AM ES T Growth Chart: [facility] (Girls, 2-20 Years) documented in this encounter Patient Instructions Patient InstructionsAna Jacobs RN - 01/21/2012 10:51 AM EST Seen for constipation, urinary frequency and UTI. Plan to do KUB, and if needed cleanout. If needed maintenance on 1 cap miralax daily and titrate to keep stools soft. F/U in 6-8 weeks. Miralax Cleanout For Constipation Your doctor has prescribed Miralax to treat your child's constipation. If your child is impacted with stool a cleanout may need to be performed to empty out all of the stool. To do this you should mix8 capfuls of Miralax in 32 oz of fluid (preferably Gatorade). Your child should drink 8 oz every 15 minutes until the mixture is gone. It is important to drink the fluid over a short period of time or the medicine will not work properly. Your child will experience diarrhea shortly after consuming Miralax. We would then expect you child to pass pieces of stool followed by diarrhea again. The goal for the stool is to become pale iced tea color or clear. If you child does not have clear stool at the end then he/she may need additional doses of Miralax. Please call the office for assistance. Your childshould be encouraged to continue drinking as Miralax works by bringing fluid into the colon to soften the stool. . After 6 hours, please repeat Miralax. Your child with then be taking one capful of Miralax in 8 oz fluid daily in the morning. The goal for your child is to have daily applesauce consistency stool. If your child does not have a bowel movement during the day, then an additional one capful should be given in 8 oz of fluid in the evening. The amount of Miralax your child needs to achieve this may need to be adjusted. Please call the office for assistance. Your child needs to continue this medication until the follow up visit. It is often necessary to remain on Miralax for a long period of time to treat constipation and this is safe. Toilet sits: After eating sit on toilet for 4-5 minutes. Active pushing with feet elevated with stepstool and blowing (blow bubbles, pin wheel) Your child will need a follow up appointment on Mar 03 at 10AM. Pediatric Gastroenterology [phone] Jeanie Omalley RN Nurse Coordinator [phone] documented in this encounter Progress Notes Ermelinda Howe MD - 01/21/2012 10:08 AM EST 01/21/2012 It was my pleasure to consult on and examine Lety Murray at the [facility] at the request of Ana M Gooden MD for evaluation of abdominal pain, constipation. Ptis accompanied by her mother. HPI As you know, Lety is a 11 y.o. 5 m.o. female child, whose symptoms began when a toddler. Her motherhas brought a hand written letter detailing her daughter's issues. In brief, first came and was evaluated by [facility] (Dr. Kaya Coronado) when Lety was two/[age] yearsold. During management at one point treated with mineral oil. 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 D/c'd from Urology clinic in 12/2008. Has again started with UTI's and nighttime bedwetting. When BM are more regular, urinary issues are minimal. Sits on toilet regularly to urinate (not defecate). Last UTI past summer. BM are very large in caliber. Occasionally BRB when wiping. No fecal soiling. BM 1-2x/week. Often with associated abdominal pain, diffuse. Will decrease with defecation. Stooling pattern is improved with daily Miralax, but is resisting taking it. No growth issues. No joint pain/rash. No N/V. Previous reports reviewed: Patient information form office notes Review of Systems 14 point review of systems revealed the following in addition to any already discussed in the HPI: Constitutional:none Eyes:none HENT:none Respiratory:none Cardiovascular:none Abdominal:none :none Skin:none Neurologic:none Musculoskeletal:none Psychiatric:none Endocrine:started menses a year ago. Hematologic:none Allergic/Immunologic:none History I have reviewed past medical, surgical, social and family history, medications and allergies as documented in the patient's electronic medical record. Past Medical History: Hospitalized for dehydration FT gestation H/o Grade I VUR H/o UTIs Past Surgical History: None Family History: HBP, Heart Disease- family member not specified Social History: Lives with parents, sister (23yr); 7th grade; 2 cats, 1 dog; No smokers in house Enjoys: dance, soccer, skiing Medications Current Outpatient Prescriptions on File Prior to Visit Medication Sig Dispense Refill ??? polyethylene glycol (MIRALAX) 17 gram/dose powder 17 grams, PO, Once daily ??? nitrofurantoin (MACRODANTIN) 50 mg capsule 50 MG = 1 Capsule(s), PO, Once daily Allergies Review of patient's allergies indicates no known allergies. Exam Blood pressure 106/64, height 158.1 cm (5' 2.25), weight 52.617 kg (116 lb). 80.26%ile based on CDC 2-20 Years pxojlv-vxx-suu data. 69.51%ile based on CDC 2- 20 Years yiitseo-qzt-bpm data. Body mass index is 21.05 kg/(m^2). 78.63%ile based on CDC 2-20 Years BMI-for-age data. General:alert, well developed, well nourished in no acute distress Head:normocephalic, atraumatic Ears:normal external appearance Eyes:PERRL, normal conjunctiva and lids; no discharge, erythema or swelling, no scleral icterus Nose:normal appearance Mouth:mucous membranes moist, normal tonsils and oropharnyx Neck:supple, normal trachea, no masses Lymph nodes:no lymphadenopathy Lungs:clear to auscultation, with good air entry throughout. No wheezes, crackles, or stridor Cardiac:regular rate and rhythm, normal S1 and S2, no murmur Abdomen:soft,nontender, non-distended,normoactive bowel sounds, no organomegaly,no mass Rectal:deferred Neurologic:alert, appropriate responsiveness for age, normal muscle tone Extremities:no clubbing, cyanosis, deformities, or edema Skin:no rashes or jaundice Assessment/Plan Lety is a 11 y.o. 5 m.o. female with urinary frequency, UTIs referred for evaluation and treatment of chronic constipation. Discussed with Lety at length concerning the likelihood of functional constipation. Will send celiac and thyroid screening labs. Discussed various treatment strategies for chronic constipation. Reviewed importance of maintenance regimen including toilet sits. Will send KUB today to fully assess degree of fecal load. If demonstrates fecal impaction, Lety agrees to proceed with Miralax cleanout and daily miralax for soft daily BM. Follow up phone call next week to review response to cleanout and laboratory studies. Follow up appointment in 6-8 weeks. Lety and her mother express comfort and understanding of plan. Thank you for this consultation. I look forward to following her care along with you. Copy sent to: [place] [address] documented in this encounter Plan of Treatment Not on filedocumented as of this encounter Procedures Procedure Name Priority Date/Time Associated Diagnosis Comme nts TISSUE Routine 01/21/2012 11:30 Constipation Results for this TRANSGLUTAMINASE, AM EST procedure are in IGA the results section. TSH Routine 01/21/2012 11:30 Constipation Results for this AM EST procedure are i n the results section. T4, FREE Routine 01/21/2012 11:30 Constipation Results for this AM EST procedure are i n the results section. IGA Routine 01/21/2012 11:30 Constipation Results for this AM EST procedure are i n the results section. XR ABDOMEN 1 VIEW Routine 01/21/2012 11:16 Constipation Result s for this AM EST procedure are i n the results section. documented in this encounter Results IgA (01/21/2012 11:30 AM EST) athologist Signature IgA 225 58 - 358 CERNER mg/dL [facility] Specimen Anatomical Collection Method Collection Time Receive d Time (Source) Location / / Volume Laterality Blood specimen 01/21/2012 11:30 2 (specimen) AM EST 11:34 AM EST Resulting Agency Comment Spec In Lab Ermelinda Howe MD IMMUNOLOGY ORDERABLES Performing Organization Address City/State/ZIP Code Phon e Number [place] [phone] [facility] Tissue transglutaminase, IgA (01/21/2012 11:30 AM EST) athologist Signature TTG IgA Ab <4.0 <=3.9 u/ml CERNER MILLENNIUM Comment: Result Interpretation: Negative: ?<4 U/mL Weak Positive: ??4-10 U/mL Positive: ?>10 U/mL Specimen Anatomical Collection Method Collection Time Receive d Time (Source) Location / / Volume Laterality Blood specimen 01/21/2012 11:30 2 2:36 (specimen) AM EST PM EST Resulting Agency Comment Spec In Lab Ermelinda Howe MD IMMUNOLOGY ORDERABLES Performing Organization Address City/[facility]/[place] [address] CERNER MILLENNIUM TSH (01/21/2012 11:30 AM EST) athologist Signature TSH 1.98 0.27 - 4.20 CERNER mcIU/mL [facility] Specimen Anatomical Collection Method Collection Time Receive d Time (Source) Location / / Volume Laterality Blood specimen 01/21/2012 11:30 2 (specimen) AM EST 11:34 AM EST Resulting Agency Comment Spec In Lab Ermelinda Howe MD CHEMISTRY ORDERABLES Performing Organization Address City/[facility]/ZIP Code Phon e Number [address] CERNER MILLENNIUM T4, free (01/21/2012 11:30 AM EST) athologist Signature Free T4 1.20 0.90 - 1.60 CERNER ng/dL [facility] Specimen Anatomical Collection Method Collection Time Receive d Time (Source) Location / / Volume Laterality Blood specimen 01/21/2012 11:30 2 (specimen) AM EST 11:34 AM EST Resulting Agency Comment Spec In Lab Ermelinda Howe MD CHEMISTRY ORDERABLES Performing Organization Address City/[facility]/ZIP [facility] [place] [address] CERNER MILLENNIUM XR abdomen 1 view (01/21/2012 11:16 AM EST) Anatomical Region Laterality Modality Abdomen N/A Radiographic Imaging Specimen (Source) Anatomical Collection Method Collection Time Re ceived Time Location / / Volume Laterality 01/21/2012 11:16 AM EST Narrative 01/21/2012 12:19 PM EST Comparison. Examination DIAG ABDOMEN SINGLE VIEW Clinical History constipation Comparison None Technique Findings There is a large amount of fecal materia l which extends from the cecum through colon, ??with bulky fecal material withi n the rectosigmoid . ??There are 5 tno-nhr-dhngdkf lumbar type vertebral skye dies and the sacrum and coccyx appear normally formed. ??Right and left femora l heads are located within the acetabulum. ?? Proximal femoral physes a re nearly fused. ??Large amount of fecal material throughout the colon with bulky stool within the rectal vault. ??No heterotopic soft tissue calcifications. Procedure Note Ila Soto MD - 01/21/2012Forma tting of this note might be different from the original. Comparison. Examination DIAG ABDOMEN SINGLE VIEW Clinical History constipation Comparison None Technique Findings There is a large amount of fecal materia l which extends from the cecum through colon, with bulky fecal material within the rectosigmoid . There are 5 dkk-glr-rdzqusk lumbar type vertebral skye dies and the sacrum and coccyx appear normally formed. Right and left femoral heads are located within the acetabulum. Proximal femoral physes are nearly fused. Large amount of fecal material throughout the colon with bulky stool within the rectal vault. No heterotopic soft tissue calcifications. Ermelinda Howe MD IMG DX ORDERABLES documented in this encounter Visit Diagnoses Diagnosis Constipation - Primary Unspecified constipation documented in this encounter Care Teams Computer Networker Relationship Specialty Start Date End Date Ana M Gooden MD PCP - General 01/02/10 [place] [address] documented as of this encounter
--- OUTSIDE RECORDS SUMMARY | 2021-12-09 19:35 | XMS_ITS | Encounter Summary ---
:1999 Author Organization [facility] [place] [address] Care Team Providers Name Role Phone Ana M Gooden MD Primary Care Provider Encounter Details Date Type Department Care Team Description 01/21/2012 Hospital Encounter XRay at [facility], DR [address] [place] [address] Ermelinda Daily MD [facility] [place] [address] [place] [address] Social History Tobacco Use Types Packs/Day Years Used Date Never Smoker Smokeless Tobacco: Never Used Sex Assigned at Date Recorded Not on file documented as of this encounter Medications at Time of Discharge Medication Sig Dispensed Refills Start Date End Date polyethylene glycol 17 grams, PO, Once 0 01/07/20 09 (MIRALAX) 17 gram/dose daily powder nitrofurantoin 50 MG = 1 0 01/06/2009 03/03/2012 (MACRODANTIN) 50 mg capsule Capsule(s), PO, Once daily documented as of this encounter Plan of Treatment Not on filedocumented as of this encounter Visit Diagnoses Not on filedocumented in this encounter Care Teams Cook Starch Relationship Specialty Start Date End Date Ana M Gooden MD PCP - General 01/02/10 [place] [address] documented as of this encounter
--- OUTSIDE RECORDS SUMMARY | 2021-12-09 19:35 | XMS_ITS | Clinical Summary ---
:1999 Author Organization [facility] Address [address] [place] [address] Care Team Providers Name Role Phone Unavailable Primary Care Provider Unavailable Social History Tobacco Use Types Packs/Day Years Used Date Never Assessed Sex Assigned at Date Recorded Not on file Plan of Treatment Health Maintenance Due Date Last Done Comments Hepatitis C Screen 1999 COVID-19 Vaccine (#1) 01/24/2000
--- NOTE | 2021-12-09 19:38 | ED.GENADUL_ITS ---
Discharge Plan Disposition Patient Disposition: HOME Condition: Stable Discharge Details Clinical Impression: Pharyngitis Primary Care Provider: Diana Velasco ED Provider: Ioana Hernandez Home Meds and New Rx's Prescriptions: New amoxicillin-pot clavulanate 875-125 mg tablet 1 tab PO BID 7 Days Qty: 14 0RF No Action Lo Loestrin Fe 1 mg-10 mcg (24)/10 mcg (2) tablet 1 tab PO DAILY Qty: 28 2RF sertraline 50 mg tablet 75 mg PO DAILY Discharge Instructions Instructions: Pharyngitis (ED) Additional Instructions: The strep swab and Covid today was negative however, we are sending it for a culture. I am going to give you antibiotics based on your exam. Take the antibiotics as directed twice daily with yogurt or probiotic. Gargle with warm salt water up to three times daily as needed. Please take Tylenol or Ibuprofen with food every 4-6 hours as needed for pain and swelling. Follow up with primary care provider in 3-5 days. Return to ED sooner if any worsening or concerns. Increase oral fluids.. Stand Alone Forms: Work Release Referrals: Diana Velasco [Primary Care Provider] - 1 week Medical Decision Making Rapid strep and POC COVID and flu ordered. Swabs are negative, patient placed on Augmentin discussed culture which is pending. Discussed home care including salt water gargles and follow-up care. Verbalized understanding. This text was generated using Visual[employer] dictation system, please disregard any oddities of phrase or misspellings. Lab Data Lab results reviewed: Yes I reviewed the patient's lab results. HPI General Mode of arrival: ambulatory . Date/Time Provider Initiated Documentation: 12/09/21 19:33 . Limitations to Documentation: no limitations . Information obtained by: patient, RN notes reviewed and old records reviewed . HPI Narrative: Is a 21-year-old female presents to the ER with chief complaint sore throat which began Friday she noticed white patches began yesterday at her tonsils. Associated with headache and body aches. Denies any ear pain. Denies cough or abdominal pain. She has had strep in the past. She is vaccinated for COVID. She also does have a cold sore noted to right corner of her mouth. Past medical history includes depression, anxiety disorder. She is on control and takes antidepressant. She last took some DayQuil around noon today. Related Data Home Medications Medication Instructions Recorded Confirmed norethindrone 1 mg-ethinyl 1 tab PO DAILY #28 tabs 09/05/21 09/05/21 estradiol 10 mcg (24)-iron 10 mcg(2) tablet (Lo Loestrin Fe) sertraline 50 mg tablet 75 mg PO DAILY 09/05/21 09/05/21 amoxicillin 875 mg-potassium 1 tab PO BID 7 days #14 tabs 12/09/21 clavulanate 125 mg tablet Previous Rx's Medication Instructions Recorded norethindrone 1 mg-ethinyl 1 tab PO DAILY #28 tabs 09/05/21 estradiol 10 mcg (24)-iron 10 mcg(2) tablet (Lo Loestrin Fe) amoxicillin 875 mg-potassium 1 tab PO BID 7 days #14 tabs 12/09/21 clavulanate 125 mg tablet Allergies Allergy/AdvReac Type Severity Reaction Status Date / Time No Known Allergies Allergy Verified 09/05/21 11:20 General Stated Complaint: Sorethroat FERNANDO: 4 Review of Systems All systems reviewed & are unremarkable except as noted in HPI and below Constitutional Constitutional: Reports headache(s) ENT Ears, Nose, Mouth, and Throat: Reports as per HPI, Denies otalgia, Reports headache(s), Denies lip swelling, Denies sinus pain and Reports sore throat Cardiovascular Cardiovascular: Denies chest pain and Denies dyspnea Respiratory Respiratory: Denies cough and Denies dyspnea Gastrointestinal Gastrointestinal: Denies abdominal pain Neurologic Neurologic: Reports headache(s) Allergic/Immunologic Allergic/Immunologic: Denies lip swelling PFSH All Active Problems (Updated 12/09/21 @ 19:52 by Ioana Hernandez NP) Pharyngitis (Acute) Anorgasmia of female (Acute) Depression (Chronic) Episode of syncope (Chronic) Depression (Chronic) Adjustment disorder with mixed anxiety and depressed mood (Acute) Other specified counseling (Acute) Contraception (Acute) Medical History (Updated 12/09/21 @ 19:52 by Ioana Hernandez NP) Constipation Depression Generalized headaches Right ankle sprain Surgical History No significant past surgical history Family History Mother Essential hypertension Thyroid disorder Depression Sibling No problems noted. Grandparent Essential hypertension Personal history of malignant neoplasm Heart disease Maternal Grandmother , age 96 Vascular dementia Dementia Sister Hyperlipidemia Depression Paternal Grandfather Cancer Colon cancer Father Depression Self Depression Other Hypertension Social History Smoking/Tobacco Use Status: Never Smoking risk assessment performed?: Yes Alcohol Intake: current Alcohol Intake frequency: a few times a week Alcohol type: hard liquor and other Drug use: Socially Substance use type: marijuana Counseling given: Yes Counseling provided: provider counseling Adopted: No Housing: apartment Education Level: college Details: - 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 Seatbelt use: always Do you feel safe at home: Yes Do you feel safe in your relationship?: Yes Female Reproductive History Menstrual control method: pills History History 0 Para Hx # Term Pregnancies Multiple births Hx # Pregnancies Ectopic pregnancies AB induced Hx Number of Living Children AB spontaneous Exam HENMT Head: normal to inspection and normocephalic General nose exam: external nose normal and nares normal Face and sinus: normal facial exam Mouth: tongue normal and no drooling Teeth and gingiva: dentition normal Throat: uvula midline, abnormal tonsil bilaterally erythema and exudates and posterior oropharynx abnormal erythema Course Vital Signs Vital signs: Vital Signs Temperature 36.9 C 12/09/21 19:23 Pulse 100 H 12/09/21 19:23 Respiratory Rate 16 12/09/21 19:23 Blood Pressure 137/91 H 12/09/21 19:23 Pulse Oximetry 98 12/09/21 19:23 Temperature 36.9 C 12/09/21 19:23 Temperature Source Skin 12/09/21 19:23 Pulse 100 H 12/09/21 19:23 Respiratory Rate 16 12/09/21 19:23 Respiratory Effort 12/09/21 19:36 Blood Pressure 137/91 H 12/09/21 19:23 Blood Pressure Position Sitting 12/09/21 19:23 Pulse Oximetry 98 12/09/21 19:23 Oxygen Delivery Method Room Air 12/09/21 19:23 Oxygen Flow Rate 0 12/09/21 19:23 Pain Level 3 12/09/21 19:23 Comment 12/09/21 19:23 PAWSS Have you Been Recently Intoxicated or Drunk Within the Last 30 days?: No Have you Ever Experienced Previous Episodes of Alcohol Withdrawal?: No Have you ever Experienced Withdrawal Seizures?: No Have you ever Experienced Delirium Tremens(DT)s?: No Have you ever undergone Alcohol Rehabilitation Treatment (i.e, inpt ot outpatient treatment programs)?: No Have you ever Experienced Blackouts?: No Have you ever Combined Alcohol with other Downers within the last 90 days?: No Have you ever Combined Alcohol with any other Substance of Abuse during the last 90 days?: No Positive Blood Alcohol level on Presentation? [PCS.BAL]: No Evidence of Increased Autonomic Activity (i.e. HR>120, tremor, sweating, agit ation, nausea)?: No Result: 0
[2021-12-09] MEDS: Amox. 875/Clav. 125, 2 TABS/BTL 1 TAB PO (20:12)
[2021-12-09] MEDS: Ibuprofen 600 MG TAB PO (20:13)
[2021-12-09] MEDS: Amoxicillin 875/Clav. 125 TAB PO (20:13)
[2021-12-11 10:57] LABS: COVID-19 RT-PCR UVMMC Result Negative (Negative)
== END 2021-12-09 20:14 | disposition home or self-care (01) ==
PROVIDERS: Emergency Provider Registered Nurse Emergency; PCP Nurse Practitioner Family
DX: J02.9 Acute pharyngitis, unspecified (principal); Z20.822 Contact with and (suspected) exposure to COVID-19
CPT/HCPCS: 87880; 99283; U0003; 87081

== ENCOUNTER 2022-10-09 08:15 | Emergency (ER) | payer BC, SELFPAY ==
[2022-10-09 08:18] VITALS: BP 149/87; PULSE 115; RESP 18; TEMP 36.9; O2SAT 98
--- NOTE | 2022-10-09 08:35 | ED.GENADUL_ITS ---
Discharge Plan Disposition Patient Disposition: Home Condition: Stable Discharge Details Clinical Impression: Pharyngitis Primary Care Provider: Diana Velasco ED Provider: Arnulfo Evans Home Meds and New Rx's Prescriptions: New amoxicillin 500 mg tablet 500 mg PO BID Qty: 20 0RF Continued Lo Loestrin Fe 1 mg-10 mcg (24)/10 mcg (2) tablet 1 tab PO DAILY Qty: 28 2RF sertraline 50 mg tablet 75 mg PO DAILY Discharge Instructions Instructions: Pharyngitis (ED) Additional Instructions: if not better by next week follow up with your primary care provider or express care you can take 1000mg tylenol and 600mg ibuprofen every 6 hours as needed if you feel more ill, have severe worsening pain or inability to swallow liquids return to the emergency department Medical Decision Making 22 yo female with no significant pmhx who comes in with sore throat since Friday. Denies fevers, chills, changes in voice, difficulty swallowing, dyspnea. She appears well on exam, speaking clearly, no submandibular swelling, midline uvula, no pain over the hyoid and no restricted neck movements. Has mild erythema of the posterior pharynx with exudates. Suspect strep vs viral pharyngitis, will obtain strep and flu/covid rapid tests. She has no findings on exam to suggest retropharyngeal abscess, epiglotitis, or peritonsilar abscess. strep and covid/flu rapid test negative, strep culture sent but given she has exudates will empirically treat with amoxicillin. Stable for d/c, return precautions given and advised to f/u with pcp Differential Diagnosis Differential Diagnosis: strep, viral pharyngitis, covid, flu HPI General Mode of arrival: ambulatory . Date/Time Provider Initiated Documentation: 10/09/22 08:16 . Limitations to Documentation: no limitations . Information obtained by: patient . History of Present Illness 22 year old F presents to the emergency department with the chief complaint of sore throat, described as moderate, Patient started experiencing this day(s) (3) and it has been constant. No relieving factors improve symptom(s), No exacerbating factors reported . Patient notes denies fever/chills. Patient did receive the following treatments prior to arrival, none Related Data Home Medications Medication Instructions Recorded Confirmed norethindrone 1 mg-ethinyl 1 tab PO DAILY #28 tabs 09/05/21 10/09/22 estradiol 10 mcg (24)-iron 10 mcg(2) tablet (Lo Loestrin Fe) sertraline 50 mg tablet 75 mg PO DAILY 09/05/21 10/09/22 amoxicillin 500 mg tablet 500 mg PO BID #20 tabs 10/09/22 Previous Rx's Medication Instructions Recorded norethindrone 1 mg-ethinyl 1 tab PO DAILY #28 tabs 09/05/21 estradiol 10 mcg (24)-iron 10 mcg(2) tablet (Lo Loestrin Fe) amoxicillin 500 mg tablet 500 mg PO BID #20 tabs 10/09/22 Allergies Allergy/AdvReac Type Severity Reaction Status Date / Time No Known Allergies Allergy Verified 10/09/22 08:21 General Stated Complaint: Sorethroat FERNANDO: 4 Review of Systems All systems reviewed & are unremarkable except as noted in HPI and below Constitutional Constitutional: Denies chills, Denies fever(s) and Denies weakness ENT Ears, Nose, Mouth, and Throat: Denies change in voice Cardiovascular Cardiovascular: Denies chest pain and Denies dyspnea Respiratory Respiratory: Denies cough and Denies dyspnea Gastrointestinal Gastrointestinal: Denies abdominal pain, Denies nausea and Denies vomiting Integumentary/Breasts Skin/Breast: Denies rash Neurologic Neurologic: Denies weakness PFSH All Active Problems (Updated 10/09/22 @ 08:50 by Arnulfo Evans MD) Pharyngitis (Acute) 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 Grandparent Essential hypertension Personal history of malignant neoplasm Heart disease Maternal Grandmother , age 96 Vascular dementia Dementia Sister Hyperlipidemia Depression Paternal Grandfather Cancer Colon cancer Father Depression Self Depression Other Hypertension Social History Smoking/Tobacco Use Status: Never Smoking risk assessment performed?: Yes Alcohol Intake: current Alcohol Intake frequency: a few times a week Alcohol type: hard liquor and other Drug use: Socially Substance use type: marijuana Counseling given: Yes Counseling provided: provider counseling Adopted: No Housing: apartment Education Level: college Details: - 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 Seatbelt use: always Do you feel safe at home: Yes Do you feel safe in your relationship?: Yes Female Reproductive History Menstrual control method: pills History History 0 Para Hx # Term Pregnancies Multiple births Hx # Pregnancies Ectopic pregnancies AB induced Hx Number of Living Children AB spontaneous Exam Const General: no acute distress Orientation: alert HENMT Head: normal to inspection Ears: external ears normal General nose exam: external nose normal Mouth: moist mucous membranes Eyes General: appearance normal, both eyes and all related structures Neck Neck: normal visual inspection Resp Effort & Inspection: normal respiratory effort and able to speak in complete sentences Cardio Rate: regular rate Skin General skin exam: no rashes or lesions noted Neuro General: patient alert and patient oriented x3 Extrem General: normal to inspection Psych Mental Status: mental status grossly normal Course Vital Signs Vital signs: Vital Signs Temperature 36.9 C 10/09/22 08:18 Pulse 115 H 10/09/22 08:18 Respiratory Rate 18 10/09/22 08:18 Blood Pressure 149/87 H 10/09/22 08:18 Pulse Oximetry 98 10/09/22 08:18 Temperature 36.9 C 10/09/22 08:18 Temperature Source Oral 10/09/22 08:18 Pulse 115 H 10/09/22 08:18 Respiratory Rate 18 10/09/22 08:18 Respiratory Effort Normal, Non-Labored 10/09/22 08:21 Blood Pressure 149/87 H 10/09/22 08:18 Blood Pressure Position Sitting 10/09/22 08:18 Pulse Oximetry 98 10/09/22 08:18 Oxygen Delivery Method Room Air 10/09/22 08:18 Oxygen Flow Rate 0 10/09/22 08:18 Pain Level 4 10/09/22 08:18 Lab/Test Results Lab/Test Results: POC Strep Test-ROBERTA(Rapid) Start: 10/09/22 08:16 Freq: .Rapid Strep Test Status: Active Protocol: Document 10/09/22 08:34 CORINA (Rec: 10/09/22 08:34 CORINA [id number]) Strep test-ROBERTA(Rapid)-POC POC-Strep test-ROBERTA (Rapid) Negative POC-Strep test-ROBERTA (Rapid) Negative PAWSS Have you Been Recently Intoxicated or Drunk Within the Last 30 days?: No Have you Ever Experienced Previous Episodes of Alcohol Withdrawal?: No Have you ever Experienced Withdrawal Seizures?: No Have you ever Experienced Delirium Tremens(DT)s?: No Have you ever undergone Alcohol Rehabilitation Treatment (i.e, inpt ot outpatient treatment programs)?: No Have you ever Experienced Blackouts?: No Have you ever Combined Alcohol with other Downers within the last 90 days?: No Have you ever Combined Alcohol with any other Substance of Abuse during the last 90 days?: No Positive Blood Alcohol level on Presentation? [PCS.BAL]: No Evidence of Increased Autonomic Activity (i.e. HR>120, tremor, sweating, agitation, nausea)?: No Result: 0
[2022-10-09 09:05] VITALS: BP 149/87; PULSE 99; RESP 18; TEMP 36.9; O2SAT 98
--- NOTE | 2022-10-12 09:53 | NUR.NOTE ---
Nursing Note:in chart for antibiotics
== END 2022-10-09 10:51 | disposition home or self-care (01) ==
LOC: ER 09:13
PROVIDERS: Emergency Provider Emergency Medicine; PCP Nurse Practitioner Family
DX: J02.9 Acute pharyngitis, unspecified (principal); Z20.822 Contact with and (suspected) exposure to COVID-19
CPT/HCPCS: 87426; 87880; 99283; 87081; 99284